=== PATIENT | male | born 1960 | race Caucasian/White ===

== ENCOUNTER 2017-04-04 16:06 | Emergency (ER) | payer OTHER, SELFPAY ==
[2017-04-04 16:06] VITALS: BP 175/91; PULSE 67; RESP 20; TEMP 36.8; O2SAT 98; BMI 29.9
--- NOTE | 2017-04-04 16:23 | PC.NURSE ---
PT TRANSPORTED TO CT WITH CHANNELER OUTSOLE
--- NOTE | 2017-04-04 16:30 | CT_ITS ---
CT head/brain wo con HISTORY: Left arm numbness ORDERING PHYSICIAN: David Mccloud MD PATIENT AGE: 56 years COMPARISON: 04/04/2014 TECHNIQUE: Axial images obtained without contrast. Brain and bone windows reviewed. FINDINGS: No midline shift, mass effect, intracranial hemorrhage, hydrocephalus, or extra-axial fluid collection is evident. The calvarium has an unremarkable appearance. No mastoid effusion. No sinus air-fluid levels.. IMPRESSION: 1. No acute intracranial finding. 2. There is no evidence of intracranial hemorrhage, focal mass, or acute territorial infarction. A negative CT does not exclude an acute CVA. A follow-up head CT or MRI is recommended if neurological symptoms persist
[2017-04-04 17:15] VITALS: BP 145/91; PULSE 64; RESP 14; O2SAT 94
--- NOTE | 2017-04-04 17:24 | HMH.EDEXTP ---
ED Disposition Clinical Impression: Paresthesia and pain of left extremity Disposition: Home, Self-Care Condition on Discharge: Good Instructions: DI for Numbness/tingling Additional Instructions: Please call the hospital tomorrow and talk to ADELINA Box in order to arrange for an outpatient visit, within the next few days, with Dr Omalley. Referrals: Duarte Lockett PA [Physician Wool Handler] - Jenna Omalley [Referring] - Time of Disposition: 19:16 - Critical Care Critical Care Time: No Attestation: On 04/04/17, the high probability of a clinically significant, sudden or life threatening deterioration of the following system(s) required my full and direct attention, intervention and personal management. The time I documented below is in addition to time spent performing reported procedures but includes the following listed in this critical care notation. Medical Decision Making - Medical Records Medical records reviewed: Yes: I reviewed the patient's medical records. Vital Signs: 04/04/17 16:06 04/04/17 17:15 04/04/17 19:00 Temperature 98.3 F Temperature Source Oral Pulse Rate Pulse Rate [Right Radial] 67 64 65 Respiratory Rate 20 14 18 Blood Pressure Blood Pressure [Right Arm] 175/91 145/91 131/91 Blood Pressure Mean [Right Arm] 119 109 104 Blood Pressure Source Blood Pressure Source [Right Arm] Automatic Cuff Automatic Cuff Automatic Cuff Blood Pressure Position Blood Pressure Position [Right Arm] Supine Sitting Sitting 02 Sat by Pulse Oximetry 98 94 L 98 Oxygen Delivery Method Room Air Room Air Room Air 04/04/17 19:37 Temperature 98.7 F Temperature Source Oral Pulse Rate 58 L Pulse Rate [Right Radial] Respiratory Rate 18 Blood Pressure 152/92 Blood Pressure [Right Arm] Blood Pressure Mean [Right Arm] Blood Pressure Source Automatic Cuff Blood Pressure Source [Right Arm] Blood Pressure Position Sitting Blood Pressure Position [Right Arm] 02 Sat by Pulse Oximetry Oxygen Delivery Method Room Air - Lab Data Lab results reviewed: Yes: I reviewed the patient's lab results. Lab Results 04/04/17 17:33: WBC 10.4, RBC 4.81, Hgb 14.5, Hct 43.6, MCV 90.5, MCH 30.1, MCHC 33.3, RDW 13.0, Plt Count 324, MPV 7.3 L, Neut % (Auto) 62.6, Lymph % (Auto) 28.9, [place] % (Auto) 5.1, Eos % (Auto) 2.7, Baso % (Auto) 0.7, Neut # (Auto) 6.5, Lymph # (Auto) 3.0, [place] # (Auto) 0.5, Eos # (Auto) 0.3, Baso # (Auto) 0.1 04/04/17 17:33: D-Dimer < 100 04/04/17 17:33: Sodium 142, Potassium 3.7, Chloride 105, Carbon Dioxide 31, Anion Gap 9.7, BUN 14, Creatinine 0.81, Estimated Creat Clear 142, Estimated GFR 99, Est GFR ( Amer) 120, Glucose 115 H, Calcium 8.6, Total Bilirubin 0.2, AST 31, ALT 69, Alkaline Phosphatase 142 H, Total Creatine Kinase 59, CK-MB (CK-2) 0.6, CK-MB (CK-2) Rel Index 1.0, Troponin I < 0.02, Total Protein 8.5 H, Albumin 3.0 L, Globulin 5.5 H, Albumin/Globulin Ratio 0.5 L, Amylase 109, Lipase 142 04/04/17 17:33: B-Natriuretic Peptide < 5 Result diagrams: 04/04/17 17:33 04/04/17 17:33 Orders (Tests/Meds): ORDERS Category Date Time Status 12-lead EKG Request [ECG Request by /Nisha] Stat Y 04/04/17 16:15 Ordered - Radiology Data #1 Image(s): Chest Image Reviewed: Yes I have reviewed radiologist's interpretation XR chest portable HISTORY: Left arm numbness, heart disease ITS.REASON: left elbow numbness ORDERING PHYSICIAN: David Mccloud MD PATIENT AGE: 56 years COMPARISON: 09-26-10 FINDINGS: The cardiomediastinal silhouette and pulmonary vascularity are within normal limits. Right-sided pericardial fat pad noted as before The lungs are clear without infiltrates, suspicious nodules, or pleural effusions. No acute bony abnormalities. IMPRESSION: No change with no acute finding - CT Data CT Scan: Head Time Received: 18:[address] Reviewed: Yes: I have reviewed the patient's CT results, I have viewed the radiologist's interpretation Finding
--- NOTE | 2017-04-04 17:31 | XR_ITS ---
XR chest portable HISTORY: Left arm numbness, heart disease ITS.REASON: left elbow numbness ORDERING PHYSICIAN: David Mccloud MD PATIENT AGE: 56 years COMPARISON: 09-26-10 FINDINGS: The cardiomediastinal silhouette and pulmonary vascularity are within normal limits. Right-sided pericardial fat pad noted as before The lungs are clear without infiltrates, suspicious nodules, or pleural effusions. No acute bony abnormalities. IMPRESSION: No change with no acute finding
[2017-04-04 17:42] LABS: Basophils # 0.1 K/mm3 (0-0.2); Basophils % 0.7 % (0.1-2.0); Eosinophils # 0.3 K/mm3 (0.0-0.4); Eosinophils % 2.7 % (0.1-12.0); Hematocrit 43.6 % (42.0-52.0); Hemoglobin 14.5 g/dL (14.1-18.0); Lymphocytes % 28.9 K/mm3 (10-50); Mean Corpuscular HGB Conc 33.3 g/dL (31.8-35.4); Mean Corpuscular Hemoglobin 30.1 pg (27.0-31.2); Mean Corpuscular Volume 90.5 fl (80-94); Mean Platelet Volume 7.3 fl (7.4-10.4); Monocytes # 0.5 K/mm3 (0.1-1.0); Monocytes % 5.1 % (1.7-9.3); Neutrophils # 6.5 K/mm3 (1.8-7.8); Neutrophils % 62.6 % (37.0-80.0); Platelet Count 324 K/mm3 (142-424); Red Blood Count 4.81 M/mm3 (4.60-6.20); White Blood Count 10.4 K/mm3 (4.8-10.8)
[2017-04-04 18:09] LABS: Alanine Aminotransferase 69 U/L (12-78); Albumin/Globulin Ratio 0.5 (1.1-1.8); Alkaline Phosphatase 142 U/L (46-116); Amylase 109 U/L (25-125); Anion Gap 9.7 mEq/L (5-15); Aspartate Amino Transferase 31 U/L (15-37); Bilirubin,Total 0.2 mg/dL (0.2-1.0); Blood Urea Nitrogen 14 mg/dL (7-18); Calcium 8.6 mg/dL (8.5-10.1); Carbon Dioxide 31 mmol/L (21.0-32.0); Chloride 105 mmol/L (98-107); Creatine Kinase 59 U/L (39-308); Creatine Kinase MB 0.6 mg/ml (0.0-3.6); Creatinine Clearance Estimated 142 mL/min (0-300); Creatinine,Serum 0.81 mg/dL (0.70-1.30); Estimated Glomerular Filt Rate 99 ml/min (>60); GFR (African American) 120 ML/MIN (>60); Globulin 5.5 gm/dl (1.3-3.2); Glucose 115 mg/dL (74-106); Lipase 142 u/L (73-393); Potassium 3.7 mmoL/L (3.5-5.1); Sodium 142 mmol/L (136-145); Total Protein,Serum 8.5 gm/dL (6.4-8.2); Troponin I < 0.02 ng/ml (0.00-0.06)
[2017-04-04 18:10] LABS: D-Dimer < 100 (0-400)
[2017-04-04 19:00] VITALS: BP 131/91; PULSE 65; RESP 18; O2SAT 98
[2017-04-04 19:37] VITALS: BP 152/92; PULSE 58; RESP 18; TEMP 37.1; O2SAT 98
== END 2017-04-04 19:39 | disposition home or self-care (01) ==
PROVIDERS: Emergency Provider Emergency Medicine; Family Provider Family Medicine
DX: R20.2 Paresthesia of skin (principal); M79.602 Pain in left arm; Z88.1 Allergy status to other antibiotic agents
CPT/HCPCS: 70450; 71045; 80053; 82150; 82550; 82553; 83690; 83880; 84484; 85025; 85378; 93005; 93041; 99283

== ENCOUNTER → 2021-06-01 13:50 | Outpatient (CLI) | payer OTHER, SELFPAY ==
--- NOTE | 2021-06-01 14:00 | XR_ITS ---
FINAL REPORT CLINICAL HISTORY: LT ARM PAIN FINDINGS: CERVICAL SPINE Five views demonstrate no acute fracture. There is disc osteophyte complex at C5-6 with mild bilateral neural foraminal narrowing at this level. There is no malalignment. IMPRESSION: Degenerative changes C5-6 as above. Reviewed, Interpreted and Dictated by Angelito Barajas III, MD Transcribed by Marline Massey Authenticated by Angelito Barajas III, MD on 06/01/2021 02:52:50 PM [facility]
--- NOTE | 2021-06-01 14:00 | XR_ITS ---
FINAL REPORT CLINICAL HISTORY: LT ARM PAIN FINDINGS: LEFT SHOULDER Three views were obtained. There is no acute fracture or dislocation. The joint spaces appear normal. No soft tissue abnormality is identified. IMPRESSION: No acute process. Reviewed, Interpreted and Dictated by Angelito Barajas III, MD Transcribed by Marline Massey Authenticated by Angelito Barajas III, MD on 06/01/2021 02:52:53 PM [facility]
== END ==
PROVIDERS: PCP Nurse Practitioner Family; Visit Provider Nurse Practitioner Family
DX: M79.602 Pain in left arm (principal)
CPT/HCPCS: 72050; 73030

== ENCOUNTER → 2021-08-21 07:46 | Outpatient (CLI) | payer OTHER, SELFPAY ==
[2021-08-21 08:27] LABS: Chol/HDL Ratio 6.8 (1-3.5); Cholesterol 176 mg/dl (140-200); HDL Cholesterol 26 mg/dl (40-60); Triglycerides 239 mg/dl (30-150); VLDL Cholesterol 48 mg/dL (0-40)
[2021-08-21 08:37] LABS: Direct LDL Cholesterol 108.74 mg/dL (100-129)
== END ==
PROVIDERS: PCP Nurse Practitioner Family; Visit Provider Clinical Nurse Specialist Adult Health
DX: I25.118 Atherosclerotic heart disease of native coronary artery with other forms of angina pectoris (principal); E78.00 Pure hypercholesterolemia, unspecified
CPT/HCPCS: 36415; 80061

== ENCOUNTER → 2021-10-04 09:25 | Outpatient (CLI) | payer OTHER, SELFPAY ==
[2021-10-04 10:31] LABS: Alanine Aminotransferase 36 U/L (12-78); Albumin/Globulin Ratio 0.9 (1.1-1.8); Alkaline Phosphatase 103 U/L (38-126); Anion Gap 9.8 mEq/L (5-15); Aspartate Amino Transferase 31 U/L (17-59); Bilirubin,Total 0.3 mg/dl (0.2-1.3); Blood Urea Nitrogen 22 mg/dl (9-20); Calcium 9.2 mg/dl (8.4-10.2); Carbon Dioxide 26 mmol/L (22.0-30.0); Chloride 108 mmol/L (98-107); Cholesterol 188 mg/dl (140-200); Estimated Glomerular Filt Rate 86 ml/min (>60); GFR (African American) 105 ML/MIN (>60); Globulin 4.3 g/dL (1.3-3.2); Glucose 107 mg/dl (74-100); HDL Cholesterol 27 mg/dl (40-60); Potassium 4.8 mmoL/L (3.5-5.1); Sodium 139 mmol/L (136-145); Total Protein,Serum 8.3 g/dl (6.3-8.2); Triglycerides 272 mg/dl (30-150); VLDL Cholesterol 54 mg/dL (0-40)
[2021-10-05 11:35] LABS: Direct LDL Cholesterol 103 mg/dL (100-129)
== END ==
PROVIDERS: PCP Nurse Practitioner Family; Visit Provider Nurse Practitioner Acute Care
DX: E78.5 Hyperlipidemia, unspecified (principal)
CPT/HCPCS: 36415; 80053; 80061

== ENCOUNTER 2022-03-31 09:49 | Emergency (ER) | payer OTHER, SELFPAY ==
[2022-03-31 10:30] VITALS: BP 124/88; PULSE 74; RESP 18; TEMP 36.9; O2SAT 97; BMI 32.1
--- NOTE | 2022-03-31 11:09 | EXP.UTC ---
Discharge Plan Disposition Patient Disposition: Home, Self-Care Condition: Good Prescriptions Prescriptions: New azithromycin [azithromycin] 250 mg tablet 250 mg PO DIRECTED Qty: 6 0RF Rx Instructions: Take two (2) tablets on day #1, then one (1) tablet day #2 thru #5 No Action clopidogrel [Plavix] 75 mg tablet 75 mg PO DAILY rosuvastatin [Crestor] 5 mg tablet 5 mg PO DAILY scrrlslihkgmapy-zcqwerlyc-CZ [Bromfed DM] 2-30-10 mg/5 mL syrup 10 ml PO Q4-6H PRN (Reason: cold symptoms) Qty: 200 0RF azithromycin 250 MG tablet 250 mg PO UD DOSE PK Qty: 6 0RF Rx Instructions: Take two (2) tablets today, then one (1) tablet days #2 thru #5 methylprednisolone 4 MG tablets,dose pack 4 mg PO DIRECTED 6 Days Qty: 21 0RF Referrals Follow up/Referrals: Todd Boyle MD [Primary Care Provider] - See instructions Activity Restrictions/Add. Instructions Additional Instructions/Restrictions: Start antibiotic patient to take as ordered for a full length of time even if you feel better. Sinus infections do not get better overnight. It may take 2-3 days to notice much improvement so be sure to use conservative measures as discussed for symptoms. Flonase 1 spray each nostril daily to help with nasal congestion, sinus and ear pressure/information Increase fluids Humidifier/vaporizer as needed Tylenol and ibuprofen as needed for fever or pain. If symptoms do not improve or get worse return or be seen in the ER Follow-up with primary care this week Clinical Impressions Clinical Impression: Sinusitis Instructions Patient Instructions: DI for Sinusitis Discharge ED Provider: Sina ([facility])Adeline [facility] [place] HPI General Stated complaint: Congestion headache Mode of Arrival: Ambulatory Source of Information: Patient Limitations: No Limitations Time Seen by Provider: 03/31/22 11:09 Description of Symptoms (Recalled from Triage Doc. by RN): PATIENT C/O HEADACHE AND SINUS PRESSURE X 4 DAYS HEENT Symptoms (Recalled from RN notes): Yes Resp Symptoms (Recalled from RN notes): No Skin Symptoms (Recalled from RN notes): No MS Symptoms (Recalled from RN notes): No Functional Status (Recalled from RN notes): WNL History of Present Illness Provider Complaint: 61 yr old male presents for headache, sinus pressure, sinus congestion, dental pain and green nasal drainage Related Data Home Medications Medication Instructions Recorded Confirmed clopidogrel 75 mg tablet (Plavix) 75 mg PO DAILY 02/22/19 02/22/19 rosuvastatin 5 mg tablet (Crestor) 5 mg PO DAILY 02/22/19 02/22/19 Previous Rx's Medication Instructions Recorded smiinnsxigroxwo-bpgvvfwxbxufgkn-HE 10 ml PO Q4-6H PRN cold symptoms 02/22/19 2 mg-30 mg-10 mg/5 mL oral syrup #200 mL (Bromfed DM) azithromycin 250 mg tablet 250 mg PO UD DOSE PK #6 tabs 02/23/19 methylprednisolone 4 mg tablets in 4 mg PO DIRECTED 6 days ##21 02/23/19 a dose pack azithromycin 250 mg tablet 250 mg PO DIRECTED #6 tabs 03/31/22 Allergies Allergy/AdvReac Type Severity Reaction Status Date / Time amoxicillin Allergy Mild HICCUPS Verified 02/22/19 12:29 Worker's Comp Is this a Worker's Comp case?: No [facility] Disclaimer: The information contained in this section may have been updated after the patient was seen, as this information can be updated by other users. Medical History , [employer]) Hyperlipidemia Surgical History , [employer]) History of appendectomy History of cardiac cath Social History , [employer]) Smoking Status: Current every day smoker alcohol intake: never current occupational status: employed Travel in the last 8 weeks: None ROS Obtained: Yes All systems reviewed & no additional complaints except as documented Constitutional Constitutional: Reports system reviewed an
[2022-03-31 11:17] VITALS: BP 124/88; PULSE 74; RESP 18; TEMP 36.9; O2SAT 97
== END 2022-03-31 11:26 | disposition home or self-care (01) ==
PROVIDERS: Emergency Provider Nurse Practitioner Family; PCP Family Medicine
DX: J32.9 Chronic sinusitis, unspecified (principal)
CPT/HCPCS: 96372; 99212; 99213; G0463